=== PATIENT | female | born 1990 | race Caucasian/White ===

== ENCOUNTER 2022-05-18 20:21 | Inpatient (IN) | payer SELFPAY, OTHER ==
[2022-05-18] VITALS (19 sets, daily range): BP systolic 99–141; BP diastolic 49–89; PULSE 78–108; RESP 16–18; TEMP 36.1–36.8; O2SAT 90–99; BMI 30.9
[2022-05-18] MEDS: Lactated Ringers 1,000 ML 999 ML IV (20:20)
--- NOTE | 2022-05-18 20:21 | PCM.HP.BLA ---
History and Physical Date of Admission: 05/18/22 Chief complaint: Vaginal bleeding History present illness: 31-year-old G4, P1 at 36 weeks and 2 days with RAAD 06/11/2022 by LMP (no ultrasounds done this ) arrives with vaginal bleeding after seeing chiropractor. Patient states left-sided pain started and then had vaginal bleeding that continues to increase. Denies weakness, dizziness. Denies headache, vision change, chest pain, shortness of breath, nausea vomit, right upper quadrant pain. Patient states good movement. 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 officer care, BMI 30 Obstetric history: G1: SAB G2: SAB G3: 37-week IUGR primary for nonreassuring heart tones G4: Current Past medical history: None Medications: None Allergies: No known drug allergies Past surgical history: section Social history: Denies smoking, alcohol use, drug use Family history: Denies history DVT or PE Review of systems: Besides above pertinent positives a full review of systems was performed and found to be negative Physical exam: Vitals: Pulse 96 SPO2 98% on room air General: Normal-appearing no acute distress HEENT: Normocephalic/atraumatic no cervical lymphadenopathy Cardiac/respiratory: No use of accessory muscles, nonlabored breathing Abdomen: Soft, nontender, gravid Extremities: No peripheral edema normal peripheral pulses Psych: Normal affect and demeanor nonpressured speech Bedside ultrasound: Cephalic presentation. Complex amniotic fluid. Gross movements. Placenta appears anterior and in the lower portion of the uterus Labs: White blood cell count 15.6 hemoglobin 12.7 hematocrit 37.6% platelets 238 Assessment and plan: 31-year-old G4, P1 at 36 weeks and 2 days arrives as late [employer] senior officer patient with vaginal bleeding and left-sided pain. Patient found to be breech by late [employer] senior officer and was sent to chiropractor for adjustment, [employer] senior officer and patient deny version attempted. Chiropractor placed pressure on lower portion of the abdomen and adjusted hip per patient. Then patient had left-sided pain along with vaginal bleeding that has increased. Cervical exam by [employer] senior officer prior fingertip. Vaginal bleeding evaluated in patient toilet that had bleeding after with golf ball size clot in toilet. Bedside ultrasound with possible abruption along with possible low-lying placenta, bedside ultrasound and evaluation of placenta limited with abdominal ultrasound. Cannot rule out placenta previa or low-lying placenta. heart tones reassuring but with toco with every 2 contractions. Findings reviewed with patient and her [employer] senior officer along with bedside nurse. Discussed concern for placental abruption with pain along with vaginal bleeding along with bedside ultrasound evidence of possible low-lying placenta and contractions on toco. Discussed repeat section for suspected placental abruption risk benefits alternatives given. Patient states understanding wish to proceed. Educated patient on the risks include but are not limited to visceral or vascular injury, prolonged hospitalization, blood loss and need for transfusion, reoperation. Patient states understanding and wished to proceed. All questions were answered consent was signed. Educated patient on risks for baby we will give Celestone now, discussed case with blender operator. Patient states understanding and wished to proceed. All questions were answered for mother and [employer] senior officer. For now, Ancef 2 g and azithromycin 500 mg IV. Nursing notified FARM RANCHER and anesthesia. With stable heart tones and overall maternal stability we will proceed with ASA P section
[2022-05-18 20:22] LABS: Mucous, Urine 0 SEEN /hpf (<or=2+)
[2022-05-18 20:24] LABS: Absolute Neutrophil Count 12.4 X10^3/uL (2.0-7.7); Basophil# 0.06 X10^3/uL; Basophil% 0.4 % (0-1); Eosinophil# 0.09 X10^3/uL; Eosinophils% 0.6 % (0-5); Hematocrit 37.6 % (37-47); Hemoglobin 12.7 g/dL (12.0-15.0); Lymphocyte % 12.2 % (19-41); Mean Corp Hgb Conc 33.8 g/dL (32-36); Mean Corpuscular Hgb 31.9 pg (27.0-32.0); Mean Corpuscular Volume 94.5 fL (81-99); Mean Platelet Vol. 9.9 fl (6.2-12.0); Monocyte# 0.95 X10^3/uL; Monocyte% 6.1 % (0-10); NRBC Flagged by Analyzer 0 % (0-5); Neutrophil # 12.42 X10^3/uL (2.7-7.7); Neutrophil % 79.7 % (47-70); Platelet Count 238 K/mm3 (150-450); RBC Distribution Width CV 12.5 % (11.6-14.6); RBC Distribution Width SD 43.4 fl (35.1-43.9); Red Blood Count 3.98 M/mm3 (4.2-5.4); White Blood Count 15.6 K/mm3 (4.4-11.0)
[2022-05-18 20:28] LABS: Color, Urine Yellow (Yellow); Glucose, Dipstick Normal (Normal); Ketone-Dipstick 5 mg/dl (Negative); Leukocyte Esterase-Dipstick 100 /ul (Negative); Nitrite-Dipstick Negative (Negative); Occult Blood-Urine 250 /ul (Negative); Protein-Dipstick 15 mg/dl (Negative); Urine Bilirubin Dipstick Negative (Negative); Urine Clarity Clear (Clear); Urine Urobilinogen Normal (Normal); Urine pH 6.5 (5.0 - 8.0)
[2022-05-18 20:38] LABS: Bacteria RARE /hpf (None Seen); Red Blood Cells-Urine 0-5 SEEN /hpf (0-5); Squamous Epithelial Cells - UA 0-5 SEEN /hpf (5-10); White Blood Cells 0-5 SEEN /hpf (0-5)
[2022-05-18] MEDS: Acetaminophen 500 MG Tablet 1000 MG PO (20:46)
[2022-05-18] MEDS: Sodium Citrate/Citric Acid 30 ML UDC PO (20:46)
[2022-05-18 20:48] LABS: ALB/GLOB Ratio 0.7 RATIO (0.9-2.4); AST(SGOT) 23 U/L (15-37); Alanine Aminotransfer ALT/SGPT 30 U/L (13-56); Albumin, Serum 3.1 g/dL (3.2-5.0); Alkaline Phosphatase 137 U/L (45-117); Anion Gap 9 (5-15); BUN 10 mg/dL (7-18); Calcium,Total 9.2 mg/dL (8.5-10.1); Chloride 108 mmol/L (98-107); Creatinine, Serum 0.59 mg/dL (0.55-1.02); EST Glomerular Filtration Rate 127 mL/min (>60); Est Glom Filt Rate - Afr Amer 153 mL/min (>60); Estimated Creatinine Clearance 104.25 ml/min; Globulin 4.2 g/dL (2.2-4.2); Glucose 97 mg/dL (74-106); LDH 183 U/L (84-246); Potassium 3.6 mmol/L (3.5-5.1); Protein, Total 7.3 g/dL (6.4-8.2); Sodium Level 140 mmol/L (136-145)
[2022-05-18] MEDS: Betamethasone/Betamethasone 30 MG/5 ML Vial 12 MG IM (20:49)
[2022-05-18 20:58] LABS: Amphetamine Urine VISTA NEGATIVE (<1000 ng/mL); Barbiturate Urine VISTA NEGATIVE (< 200 ng/mL); Benzodiazepine Urine VISTA NEGATIVE (< 200 ng/mL); Cocaine Urine VISTA NEGATIVE (< 300 ng/mL); Ecstacy Urine VISTA NEGATIVE (< 500 ng/mL); Methadone Urine VISTA NEGATIVE (< 300 ng/mL); PCP Urine VISTA NEGATIVE (< 25 ng/mL); THC Urine VISTA NEGATIVE (< 50 ng/mL); Vista UDS pH Range 5
[2022-05-18 20:59] LABS: Rubella IgG Non-Reactive (Nonreactive); Syphilis Antibodies Non-reactive
[2022-05-18] MEDS: Cefazolin 2 GM in 0.9% Normal Saline 100 ML IV (20:59)
[2022-05-18 21:29] LABS: HIV - WCH Non-Reactive (Nonreactive); Hepatitis B Surface Antigen Non-Reactive (Nonreactive); Hepatitis C Antibody Non-Reactive (Nonreactive)
--- NOTE | 2022-05-18 21:49 | OP.PCM_ITS ---
Details Operative Information Date of Procedure: 05/18/22 Pre-Operative Diagnosis: Vaginal bleeding, suspected placental abruption Post-Operative Diagnosis: Vaginal bleeding, placental abruption Findings Description of Procedure: Procedure: Repeat low transverse section Via Pfannenstiel incision Surgeon: Ty Manzo MD Anesthesia: Spinal EBL: 800 cc Urine output: 25 cc IV fluids: 550 cc Complications: None Specimen: None Findings: Female in vertex position Apgars 9/9. Normal uterus, tubes, and ovaries. Vaginal bleeding prior to surgery, placental abruption in appearance based on presentation Consent: Patient with vaginal bleeding and pelvic pain suspected placental abruption. Patient elects for repeat low-transverse section Via Pfannenstiel incision. Patient understands risk of the procedure include but are not limited to visceral or vascular injury, prolonged hospitalization, blood loss need for transfusion, reoperation. Patient state understanding wish to proceed. All questions were answered and consent was signed. Procedure: Patient was brought back to the OR where spinal anesthesia was found to be adequate. 2 g of Ancef and 500 mg of azithromycin were given for infection prophylaxis. Patient was prepared and draped in a supine position with leftward tilt. A Pfannenstiel incision was made at the skin with a scalpel. The incision was carried down to the fascia with a scalpel. The fascia was excised and extended laterally. Rectus muscle was dissected at the midline down to the level of the pubic symphysis. Preperitoneal fatty tissue was noted peritoneum was entered bluntly. Peritoneum was extended superiorly and inferiorly with good visualization of bladder. Bladder blade was inserted and vesicouterine peritoneum was identified. Low transverse hysterotomy was made. Hand was placed into the incision and gentle fundal pressure was applied once the head was brought into the incision and the bladder blade was removed. Head and sh oulders were delivered with ease. Cord was clamped and cut. Baby handed off to nursing. Placenta was delivered via cord traction and fundal massage intact. IV oxytocin was initiated in order to facilitate uterine contractions. Uterus was exteriorized and wiped out with dry laparotomy sponge in order to remove remaining placental membranes. Uterus was closed in a continuous running fashion. [id number] suture used for hemostasis. Good hemostasis was noted. Uterus was placed back in the abdominal cavity. The incision was reinspected, good hemostasis was noted. Fascia was closed in a continuous running fashion with PDS suture. Subcutaneous irrigation was performed, good hemostasis was noted. Skin was closed in a subcuticular fashion. All counts were correct x2. Patient tolerated the procedure well and was brought to recovery in a stable condition.
[2022-05-18 22:18] LABS: Chlamydia Trachomatis by PCR Negative (Negative); Neisserai gonorrhoeae by PCR Negative (Negative); Probe Check PASS; Sample Adequacy Control PASS; Specimen Processing Control PASS
[2022-05-18] MEDS: Oxytocin 15 Units/NS 250ml 15 UNITS/250 ML IV.SOLN 83 UNITS IV (22:19)
[2022-05-18] MEDS: Ketorolac 30 MG/ML Syringe IV (23:37)
[2022-05-19] VITALS (12 sets, daily range): BP systolic 98–141; BP diastolic 51–89; PULSE 69–89; RESP 16–18; TEMP 36.3–36.7; O2SAT 96–99
[2022-05-19] MEDS: Lactated Ringers 1,000 ML 100 ML IV (01:43)
[2022-05-19] MEDS: Acetaminophen 500 MG Tablet 1000 MG PO ×4 (02:30→21:29)
[2022-05-19 04:58] LABS: Hematocrit 31.8 % (37-47); Hemoglobin 10.8 g/dL (12.0-15.0); Mean Corpuscular Hgb 32.3 pg (27.0-32.0); Mean Corpuscular Volume 95.2 fL (81-99); Mean Platelet Vol. 9.9 fl (6.2-12.0); Platelet Count 187 K/mm3 (150-450); RBC Distribution Width CV 12.4 % (11.6-14.6); RBC Distribution Width SD 43.4 fl (35.1-43.9); Red Blood Count 3.34 M/mm3 (4.2-5.4); White Blood Count 23.9 K/mm3 (4.4-11.0)
--- NOTE | 2022-05-19 05:36 | NURSING ---
Pt stood at the bedside without any assistance, Pt began to throw up and requested to get back in bed at this time
[2022-05-19] MEDS: Ketorolac 30 MG/ML Syringe IV ×3 (05:42→17:20)
[2022-05-19] MEDS: 0.9% Saline Lock 10 ML Syringe IV ×3 (07:36→17:21)
[2022-05-19] MEDS: Senna/Docusate Sodium 1 Tablet PO (07:40)
[2022-05-19] MEDS: Enoxaparin 40 MG/0.4 ML Syringe SC (10:10)
--- NOTE | 2022-05-19 11:26 | PCM.PN.OB ---
Subjective Subjective No overnight complaints. Pain well controlled. Objective Data Objective Data Vital Signs: Vital Signs Temp Pulse Resp BP Pulse Ox O2 Del Method 98.1 F 72 16 102/65 98 Room Air 05/19/22 08:00 05/19/22 08:00 05/19/22 08:00 05/19/22 08:00 05/19/22 08:00 05/19/22 08:00 Oxygen Delivery Method Room Air Weight: 163 lb 12.8 oz Body Mass Index (BMI) 30.9 Intake & Output: Intake and Output for Last 24 Hours 05/17/22 05/18/22 05/19/22 23:59 23:59 23:59 Intake Total 1110 / 1110 1346.67 / 1346.67 Output Total 850 / 850 1300 / 1300 Balance 260 / 260 46.67 / 46.67 Lab / Micro Data Result Diagrams: 05/19/22 04:40 05/18/22 20:00 Labs: Laboratory Results - last 24 hr 05/18/22 20:00: WBC 15.6 H, RBC 3.98 L, Hgb 12.7, Hct 37.6, MCV 94.5, MCH 31.9, MCHC 33.8, RDW Std Deviation 43.4, RDW Coeff of Sangeetha 12.5, Plt Count 238, MPV 9.9, Immature Gran % (Auto) 1.000 H, Neut % (Auto) 79.7 H, Lymph % (Auto) 12.2 L, [place] % (Auto) 6.1, Eos % (Auto) 0.6, Baso % (Auto) 0.4, Absolute Neuts (auto) 12.4 H, Absolute Lymphs (auto) 1.90, Nucleated RBC % 0 05/18/22 20:00: Urine Color Yellow, Urine Clarity Clear, Urine pH 6.5, Ur Specific [place] 1.020, Urine Protein 15 H, Urine Glucose (UA) Normal, Urine Ketones 5 H, Urine Occult Blood 250 H, Urine Nitrite Negative, Urine Bilirubin Negative, Urine Urobilinogen Normal, Ur Leukocyte Esterase 100 H, Urine RBC 0-5 SEEN, Urine WBC 0-5 SEEN, Ur Squamous Epith Cells 0-5 SEEN, Urine Bacteria RARE, Urine Mucus 0 SEEN 05/18/22 20:00: Syphilis Total Ab Non-reactive, Rubella IgG Antibody Non-Reactive 05/18/22 20:00: Blood Type A POSITIVE, Antibody Screen NEGATIVE 05/18/22 20:00: Urine Opiates Screen NEGATIVE, Urine Methadone Screen NEGATIVE, Ur Barbiturates Screen NEGATIVE, Ur Phencyclidine Scrn NEGATIVE, Ur Amphetamines Screen NEGATIVE, MDMA (Ecstasy) Screen NEGATIVE, U Benzodiazepines Scrn NEGATIVE, Urine Cocaine Screen NEGATIVE, U Cannabinoids Screen NEGATIVE, Ur Drug Screen Comment 05/18/22 20:00: Hep Bs Antigen Non-Reactive, Hepatitis C Antibody Non-Reactive, HIV 1&2 Antibody Non-Reactive 05/18/22 20:00: Chlam trachomat DNA PCR Negative, N.gonorrhoeae DNA (PCR) Negative, Group B Strep DNA Cancelled, Specimen Comment Cancelled 05/18/22 20:00: Sodium 140, Potassium 3.6, Chloride 108 H, Carbon Dioxide 23.0, Anion Gap 9, BUN 10, Creatinine 0.59, Estim Creat Clear Calc 104.25, Est GFR (MDRD) Af Amer 153, Est GFR (MDRD) Non-Af 127, BUN/Creatinine Ratio 17.0, Glucose 97, Calcium 9.2, Total Bilirubin 0.30, AST 23, ALT 30, Alkaline Phosphatase 137 H, Lactate Dehydrogenase 183, Total Protein 7.3, Albumin 3.1 L, Globulin 4.2, Albumin/Globulin Ratio 0.7 L 05/19/22 04:40: WBC 23.9 H, RBC 3.34 L, Hgb 10.8 L, Hct 31.8 L, MCV 95.2, MCH 32.3 H, MCHC 34.0, RDW Std Deviation 43.4, RDW Coeff of Sangeetha 12.4, Plt Count 187, MPV 9.9 Physical Exam Const alert, oriented x3, no apparent distress, average body habitus, healthy appearing and well nourished HEENT normocephalic and moist oral mucous membranes Eyes PERRL Neck full ROM Resp normal respiratory effort, no retractions and no use of accessory muscles GI GI Narrative: Soft, nontender, bandage clean dry and intact Extremity normal to inspection, full ROM and no clubbing, cyanosis or edema Neuro moves all extremities and no focal motor deficits Psych mental status grossly normal, affect normal, speech normal and activity/motor behavior normal Assessment & Plan (1) delivery delivered: PLAN: Postop day 1 status post repeat section at 36 weeks for placental abruption. Pain well controlled. Breast-feeding. Baby with hypoglycemia currently being treated in patient's room. We will evaluate tomorrow
[2022-05-19] MEDS: Ibuprofen 600 MG Tablet PO (23:50)
[2022-05-20] MEDS: Acetaminophen 500 MG Tablet 1000 MG PO ×2 (02:38→08:45)
[2022-05-20 02:39] VITALS: BP 101/60; PULSE 69; RESP 16; TEMP 36.4; O2SAT 98
[2022-05-20] MEDS: Ibuprofen 600 MG Tablet PO ×2 (05:59→11:27)
[2022-05-20 07:58] VITALS: BP 102/70; PULSE 66; RESP 16; TEMP 36.6; O2SAT 97
--- NOTE | 2022-05-20 08:30 | DS.PCM_ITS ---
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 With suspected placental abruption at 36 weeks. Performed repeat section on 05/18/2022 for placental abruption. Overall routine postoperative recovery. Discharge home on 05/20/2022 Meaningful Use Info Meaningful Use Diagnoses (Choose all that apply): None applicable Discharge Plan Admission Admit Date/Time: 05/18/22 20:21 Primary Reason for Your Visit: Vaginal bleeding Attending Provider: Ty Manzo Primary Care Provider: Kurt Corral Instructions Additional Instructions / Restrictions: Regular diet. Okay to shower. No tub baths for 2 weeks. No lifting over 25 pounds for 2 to 3 weeks. No intercourse for 4 to 6 weeks. Call if fevers, chills, chest pain, shortness of breath. Follow-up 2 weeks postoperatively Discharge Orders/Prescriptions Prescriptions: New oxycodone 5 mg tablet 5 mg PO Q6H PRN (Reason: pain (scale score 7-10)) 4 Days Qty: 16 0RF Referrals / Follow Up: Kurt Corral DO [Primary Care Provider] - Disposition Disposition (needs filled in before D/C Order can be placed): Home, Self Care
--- NOTE | 2022-05-20 08:31 | PN.OBGYN_ITS ---
Subjective Subjective No overnight complaints. Pain well controlled Objective Data Objective Data Vital Signs: Vital Signs Temp Pulse Resp BP Pulse Ox O2 Del Method 97.8 F 66 16 102/70 97 Room Air 05/20/22 07:58 05/20/22 07:58 05/20/22 07:58 05/20/22 07:58 05/20/22 07:58 05/20/22 07:58 Oxygen Delivery Method Room Air Weight: 163 lb 12.8 oz Body Mass Index (BMI) 30.9 Intake & Output: Intake and Output for Last 24 Hours 05/18/22 05/19/22 05/20/22 23:59 23:59 23:59 Intake Total 1110 / 1110 1346.67 / 1346.67 Output Total 850 / 850 1999 / 1999 Balance 260 / 260 -653.33 / -653.33 Lab / Micro Data Result Diagrams: 05/19/22 04:40 05/18/22 20:00 Physical Exam Const alert, oriented x3, no apparent distress, average body habitus, healthy appearing and well nourished HEENT normocephalic and moist oral mucous membranes Eyes PERRL Neck full ROM Resp normal respiratory effort, no retractions and no use of accessory muscles GI GI Narrative: Soft, nontender, bandage clean dry and intact Extremity normal to inspection and full ROM Neuro moves all extremities and no focal motor deficits Psych mental status grossly normal, affect normal, speech normal and activity/motor behavior normal Assessment & Plan (1) delivery delivered: PLAN: Postop day 2 status post repeat section at 36 weeks for placental abruption. Breast-feeding. Pain well controlled. 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
[2022-05-20] MEDS: Enoxaparin 40 MG/0.4 ML Syringe SC (10:33)
[2022-05-20] MEDS: Senna/Docusate Sodium 1 Tablet PO (10:33)
--- NOTE | 2022-06-02 11:03 | NURSING ---
06/02 Documentation on admission changed from care by birthing center to community provider
== END 2022-05-20 11:30 | disposition home or self-care (01) | DRG 786 ==
LOC: WPOUT 20:21 → WP 20:23
PROVIDERS: Admitting Provider Obstetrics & Gynecology; PCP Family Medicine; Visit Provider Obstetrics & Gynecology
DX: O34.211 Maternal care for low transverse scar from previous cesarean delivery (principal); O45.93 Premature separation of placenta, unspecified, third trimester; O44.43 Low lying placenta NOS or without hemorrhage, third trimester; Z37.0 Single live birth; Z3A.36 36 weeks gestation of pregnancy; Z87.59 Personal history of other complications of pregnancy, childbirth and the puerperium
CPT/HCPCS: 59025; 59050; 76815; 80053; 80307; 81001; 83615; 85025; 85027; 86703; 86762; 86780; 86803; 86850; 86900; 86901; 87340; 87491; 87591; 99221; J7120; A4216; G0378; J0702